=== PATIENT | male | born 1945 | race Caucasian/White ===

== ENCOUNTER 2017-02-20 08:37 | Emergency (ER) | payer OTHER ==
[2017-02-20 09:09] VITALS: BP 123/72; PULSE 72; RESP 18; TEMP 97.7; O2SAT 95
--- NOTE | 2017-02-20 09:46 | UCPHY ---
H & P Time Seen by Provider: 02/20/17 08:57 Patient Type: New HPI/ROS: Chief complaint: [Sore throat and loss of voice ] HPI: [healthy for age medically stable 69-year-old male complains of sore throat for 4 days now. Pretty much within 24 hours he lost his voice. He is radius strep as he has contacted his grandchildren who are preschooler so this past week. Evidently about 10 days ago he got back from a 2 week stay in the [facility] where he says he was not all that active. 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 Eyes - no discharge, or injection ENT - no earache, change in hearing, difficulty swallowing, sore throat. Respiratory - No Shortness of breath, phlegm, wheezing or pleuritic chest pain. Musculoskeletal - no joint or muscle pain. Immunological - no swelling or lymphadenopathy Smoking Status: Never smoked Physical Exam: Gen: Well developed, well nourished. Nontoxic, looks younger than his stated age. HEENT: Normocephalic. Ears: TMs are clear. Hearing normal. Eyes: PERRL. No conjunctival injection or pallor. no jaundice. Nose: No nasal discharge. Sinuses are nontender. Throat: Membranes are moist. Oropharynx is with mild erythema or exudate. Dry, raspy voice. Lungs: Good air entry into both lungs. No rales rhonchi or wheezes. No air hunger. No respiratory distress. Skin: Good color, without pallor. There is no diaphoresis. Skin is warm and dry , without diaphoresis. Intact without rashes Constitutional: Initial Vital Signs Temperature (C) 36.5 C 02/20/17 09:06 Heart Rate 72 02/20/17 09:06 Respiratory Rate 18 02/20/17 09:06 Blood Pressure 123/72 H 02/20/17 09:06 O2 Sat (%) 95 02/20/17 09:06 O2 Delivery Mode Room Air Allergies/Adverse Reactions: No Known Allergies Allergy (Unverified 02/20/17 09:06) Home Medications: Medication Instructions Recorded Azithromycin [Zithromax] 250 mg PO DAILY #6 tab 02/20/17 SIMVASTATIN 02/20/17 Medical Decision Making ED Course/Re-evaluation: His rapid strep was negative Differential Diagnosis: Diagnostic considerations include, but are not limited to, the following: URI, sinusitis, pharyngitis, otitis media, pneumonia, allergy. We discussion with respect to the most likely etiology of this is being viral. Certainly moxarella catarrhalis can cause some of these laryngitis type spells however you would rather forego any antibiotics as it is to heal expectedly regardless. He will have a backup prescription for Zithromax in case he does not completely resolved. Part of his worry is that is going on a road trip to [place] and will not be in the immediate area in the next few days - Data Points Laboratory Results: 02/20/17 02/20/17 Unknown 08:50 Group A Strep Screen NEGATIVE (NEGATIVE) Group A Strep DNA Pending Departure - Departure Disposition: Home, Routine, Self-Care Clinical Impression: Laryngitis Condition: Good Instructions: Laryngitis (ED) Additional Instructions: This simply will just take time. In a week's time if still considered the Zithromax. Referrals: Amanda Loja MD [Primary Care Provider] - As per Instructions Prescriptions: Azithromycin [Zithromax] 250 mg PO DAILY #6 tab - PQRS PQRS Measurement: 134: Depression screening and followup, PRIME MD-PHQ2 (12 years and older) Over the last 2 weeks, how often have you been bothered by any of the following problems? 1. Feeling down, depressed, or hopeless? 2. Little interest or pleasure in doing things? Patient answered no to both 1 and 2 . 130: Documentation of medications. Reviewed all patient medications, doses, route and frequency. . 226: Do you smoke? No 47: 65 and older: Advanced care planning. Patient designates surrogate decision maker as spouse . 51: 18 years old and older with diagnosis of COPD, spirometry performance. Patient has no history of COPD 52: 18 years old and older with COPD and symptoms of COPD or FEV1<60% predicted prescribed a B Agonist. Patient has no history of COPD
== END 2017-02-20 10:00 | disposition home or self-care (01) ==
LOC: CED 08:37
DX: J04.0 Acute laryngitis (principal)
CPT/HCPCS: 87880-PO; G0463-PO

== ENCOUNTER → 2018-02-13 | Outpatient (CLI) | payer OTHER | LOC: BMCIMAGING 09:35 | PROVIDERS: ATTEND Emergency Medicine | DX: M19.071 Primary osteoarthritis, right ankle and foot (principal); M79.89 Other specified soft tissue disorders ==